=== PATIENT | male | born 2000 | race Caucasian/White ===

== ENCOUNTER 2019-03-23 04:56 | Emergency (ER) | payer OTHER ==
[2019-03-23 05:04] VITALS: TEMP 96.6
[2019-03-23 05:38] LABS: HEMATOCRIT 43.4 % (36.0-47.0); HEMOGLOBIN 15.2 g/dl (12.5-16.1); MEAN CELL VOLUME 84 fl (80.0-95.0); MEAN CORPUSCULAR HEMOGLOBIN 30 pg (26.0-32.0); MEAN CORPUSCULAR HGB CONC 35 g/dl (33.0-37.0); MEAN PLATELET VOLUME 9.2 fl (7.4-10.4); PLATELET COUNT 388 K/mm3 (130-400); RED BLOOD COUNT 5.14 M/mm3 (4.20-5.60); REDCELL DISTRIBUTION WIDTH-CV 12.6 % (11.5-14.5)
[2019-03-23 05:42] LABS: INR 1.2 (0.8-3.0)
[2019-03-23 05:49] LABS: ALANINE AMINOTRANSFERASE 17 U/L (21-72); ALBUMIN 5.1 gm/dL (3.5-5.0); ALKALINE PHOSPHATASE 62 U/L (50-136); ANION GAP 17 mmol/L (7-16); AST,SGOT 37 U/L (15-37); BILIRUBIN,TOTAL 0.6 mg/dL (0.0-1.0); BLOOD UREA NITROGEN 17 mg/dL (9-20); CALCIUM 9.9 mg/dL (8.4-10.2); CARBON DIOXIDE 20 mmol/L (22-30); CHLORIDE 105 mmol/L (98-107); CREATINE KINASE 272 U/L (55-170); CREATININE, serum 1.32 (0.66-1.25); GLUCOSE 162 mg/dL (74-106); POTASSIUM 3.6 mmol/L (3.4-5.0); SODIUM 142 mmol/L (137-145); TOTAL PROTEIN 8.1 gm/dL (6.4-8.2)
[2019-03-23 05:53] LABS: ACETAMINOPHEN < 10 ug/mL (10-30); ALCOHOL(ethanol),MEDICAL < 10 mg/dL; SALICYLATE < 1.0 mg/dL
[2019-03-23 06:06] LABS: BAND 10 % (0-10); LYMPHOCYTE 6 % (20.0-51.0); METAMYELOCYTE 1 % (0-0); NEUTROPHILS 77 % (42.0-75.2); PLATELET ESTIMATE NORMAL (NORMAL)
[2019-03-23 09:04] LABS: TRICYCLIC ANTIDEPRESS URINE NEGATIVE
[2019-03-23] MEDS ORDERED: LEXAPRO 10MG10 MG PO (10:08)
[2019-03-23] MEDS ORDERED: CEPHALEXIN500 M1 PO (13:05)
[2019-03-23] MEDS ORDERED: NORCO 325 MG-51 TAB PO (13:05)
[2019-03-23 14:46] VITALS: BP 122/72; PULSE 98
== END 2019-03-23 15:13 | disposition home or self-care (01) ==
LOC: COL.ER 04:56
PROVIDERS: Emergency Medicine
DX: S02.2XXA Fracture of nasal bones, initial encounter for closed fracture (principal); S91.311A Laceration without foreign body, right foot, initial encounter; S39.94XA Unspecified injury of external genitals, initial encounter; R41.82 Altered mental status, unspecified; Y09 Assault by unspecified means; Y92.009 Unspecified place in unspecified non-institutional (private) residence as the place of occurrence of the external cause
CPT/HCPCS: J0690; J1630; J2060; J3010